=== PATIENT | female | born 1975 | race Caucasian/White ===

== ENCOUNTER 2019-06-11 01:06 | Outpatient (CLI) | payer BC, SELFPAY ==
--- NOTE | 2019-06-11 13:19 | DI.MAMMO_ITS ---
SYMPTOMS/DIAGNOSIS: SCREENING, Z12.31 BILATERAL SCREENING MAMMOGRAM: Mammograms were interpreted according to the usual protocol including computer analysis with CAD system, tomosynthesis and C view imaging. Comparison is made with 2014. The breasts are composed of extremely dense fibroglandular tissue, breast density category D. No suspicious masses or suspicious microcalcifications are seen. There has been no significant change. IMPRESSION: Category 1, negative mammogram. Yearly screening mammography is recommended. [facility] ASSESSMENT OF FINDINGS: Negative. Category 1. Patient will receive a letter notifying them of these results. BI-RADS category D. The breasts are extremely dense, which lowers the sensitivity of mammography.
== END 2019-06-11 01:26 ==
PROVIDERS: PCP Family Medicine; Visit Provider Family Medicine
DX: Z12.31 Encounter for screening mammogram for malignant neoplasm of breast (principal)
CPT/HCPCS: 77063; 77067

== ENCOUNTER 2022-11-29 11:54 | Outpatient (REF) | payer SELFPAY ==
[2022-11-29 13:04] LABS: TSH (W/Ref FT4) 4.03 uIU/mL (0.36-3.74)
[2022-11-29 13:25] LABS: FREE T4 0.76 ng/dL (0.76-1.46)
== END 2022-11-29 11:55 | disposition home or self-care (01) ==
LOC: LBN 11:54
PROVIDERS: PCP Family Medicine; Visit Provider Nurse Practitioner Family
DX: K59.00 Constipation, unspecified (principal); R63.5 Abnormal weight gain
CPT/HCPCS: 84439; 84443

== ENCOUNTER 2024-03-16 05:41 | Outpatient (CLI) | payer SELFPAY ==
[2024-03-16 12:03] LABS: Anion Gap 3.2 mmol/L (3-11); BUN 19 mg/dL (7-18); CO2 30.8 mmol/L (21.0-32.0); CREATININE 0.9 mg/dL (0.55-1.02); Calculated LDL 110 mg/dL (<100); Chloride 105 mmol/L (98-107); Cholesterol 193 mg/dL (<200); Estimated GFR 77.88 (mL/min/1.73m2); Glucose 87 mg/dL (74-106); HDL Cholesterol 70 mg/dL (40-60); Potassium 3.7 mmol/L (3.5-5.1); Sodium 139 mmol/L (136-145); TSH (W/Ref FT4) 3.29 uIU/mL (0.36-3.74); Triglyceride 67 mg/dL (<150)
[2024-03-18 13:39] LABS: Lab Add On Test DONE
[2024-03-18 13:54] LABS: Iron 54 ug/dL (50-170)
[2024-03-18 14:07] LABS: Ferritin 9 ng/mL (8-252)
== END 2024-03-16 05:42 | disposition home or self-care (01) ==
LOC: LBO 05:41
PROVIDERS: PCP Family Medicine; Visit Provider Family Medicine
DX: E78.5 Hyperlipidemia, unspecified (principal); E03.9 Hypothyroidism, unspecified; E87.1 Hypo-osmolality and hyponatremia
CPT/HCPCS: 36415; 80048; 80061; 82728; 83540; 84443

== ENCOUNTER 2024-03-17 05:24 | Outpatient (CLI) | payer SELFPAY ==
[2024-03-17 16:11] LABS: Abs Immature Grans 0.02 10^3/uL (0.0-0.06); Absolute Basophil Count 0.02 10^3/uL (0.0-0.2); Absolute Eosinophil Count 0.12 10^3/uL (0.0-0.7); Absolute Lymphocyte Count 1.33 10^3/uL (1.2-3.4); Absolute Monocyte Count 0.41 10^3/uL (0.1-0.8); Absolute Neutrophil Count 2.95 10^3/uL (1.2-6.7); Basophils % 0.4 %; Eosinophils % 2.5 %; HCT 35.3 % (36.0-46.0); HGB 11.2 g/dL (11.2-15.7); Immature Grans % 0.4 %; Lymphocytes % 27.4 %; MCH 27.5 pg (27.0-33.0); MCHC 31.7 % (32.0-36.0); MCV 87 fL (80-95); MPV 9.4 fL (8.0-11.0); Monocytes % 8.5 %; Neutrophils % 60.8 %; Platelet Count 271 10^3/uL (130-400); RBC 4.08 10^6/uL (3.93-5.22); RDW 13.1 % (11.7-14.6); RDW-SD 41.1 fL; WBC 4.85 10^3/uL (4.4-10.8)
== END 2024-03-17 05:25 | disposition home or self-care (01) ==
PROVIDERS: PCP Family Medicine; Visit Provider Family Medicine
DX: R58 Hemorrhage, not elsewhere classified (principal)
CPT/HCPCS: 36415; 85025

== ENCOUNTER 2024-03-23 12:10 | Emergency (ER) | payer SELFPAY ==
[2024-03-23 12:12] VITALS: BP 113/71; PULSE 60; RESP 18; TEMP 36.5; O2SAT 99
--- NOTE | 2024-03-23 12:30 | DI.CT_ITS ---
Exam(s) CT ABDOMEN PELVIS W EXAM: CT ABDOMEN PELVIS W CLINICAL HISTORY: abd pain RLQ pain bloody stool contipation TECHNIQUE: Imaging Protocol: Axial computed tomography images with coronal and sagittal reformatted images were created and reviewed. CONTRAST MATERIAL: Intravenous: Omnipaque 350 Contrast volume:100 mL Oral: No COMPARISON: CT ABD PELVIS WITH CONTRAST from 07/09/2013 FINDINGS: ABDOMEN: Lung Bases: Normal where visualized. Liver: Normal density. No measurable mass. Portal, Superior Mesenteric, and Splenic Veins: Unremarkable. Gallbladder and Biliary Tract: No radiodense calculus or dilation. Pancreas: Normal density, no abnormal calcifications or inflammatory process. Spleen: Normal. There is a small simple cyst or hemangioma in the spleen. Adrenals: No masses seen. Kidneys: Normal size, contour and axis. No radiodense stones or obstructive uropathy. No masses seen. Abdominal Aorta: Abdominal portion non-dilated. Bowel: No obstruction or bowel wall thickening. Appendix is unremarkable. The stomach is incompletely distended limiting evaluation. Peritoneal Cavity: No ascites, collection or mesenteric inflammatory response. No free air. Lymph Nodes: Within normal limits. Bones: Within normal limits for the patient's age. Soft Tissues: There is a small fat containing umbilical hernia. PELVIS: Bladder: Symmetric distention, no gross wall thickening. Reproductive Organs: There is an IUD which is in good position. Lymph Nodes: Within normal limits. Bones: Within normal limits for the patient's age. IMPRESSION: 1. No acute abdominal pelvic process. 2. Normal appendix. RADIATION DOSE DELIVERED: 836.81mGy.cm Total DLP DATA REPOSITORY: All CT scans at this facility are submitted to the National Radiology Data Registry (NRDR) Dose Index Registry (DIR) with the [employer] (ACR). RADIATION OPTIMIZATION: All CT scans at this facility use at least one of these dose optimization te chniques: automated exposure control; mA and/or kV adjustment per patient size (includes targeted exa ms where dose is matched to clinical indication); or iterative reconstruction.
[2024-03-23 12:41] LABS: Abs Immature Grans 0.01 10^3/uL (0.0-0.06); Absolute Basophil Count 0.03 10^3/uL (0.0-0.2); Absolute Eosinophil Count 0.11 10^3/uL (0.0-0.7); Absolute Lymphocyte Count 1.28 10^3/uL (1.2-3.4); Absolute Monocyte Count 0.46 10^3/uL (0.1-0.8); Absolute Neutrophil Count 3.26 10^3/uL (1.2-6.7); Basophils % 0.6 %; Eosinophils % 2.1 %; HCT 40.3 % (36.0-46.0); HGB 13.1 g/dL (11.2-15.7); Immature Grans % 0.2 %; Lymphocytes % 24.9 %; MCH 27.3 pg (27.0-33.0); MCHC 32.5 % (32.0-36.0); MCV 84 fL (80-95); MPV 9.9 fL (8.0-11.0); Monocytes % 8.9 %; Neutrophils % 63.3 %; Platelet Count 293 10^3/uL (130-400); RBC 4.79 10^6/uL (3.93-5.22); RDW 12.8 % (11.7-14.6); RDW-SD 39.1 fL; WBC 5.15 10^3/uL (4.4-10.8)
[2024-03-23 12:42] LABS: Bilirubin Negative (Negative); Blood Negative (Negative); Clarity Clear (Clear); Glucose Negative (Negative); Ketones Negative (Negative); Leukocyte Esterase Negative (Negative); Nitrite Negative (Negative); Urobilinogen 0.2 mg/dL (Up to 0.2); pH 5.5 (5-8)
[2024-03-23 12:58] LABS: ALT 23 U/L (14-59); AST 19 U/L (15-37); Albumin 4.1 g/dL (3.4-5.0); Alkaline Phosphatase 63 U/L (46-116); Anion Gap 8.9 mmol/L (3-11); BUN 18 mg/dL (7-18); Bilirubin, Total 0.5 mg/dL (0.2-1.0); CO2 28.1 mmol/L (21.0-32.0); CREATININE 0.9 mg/dL (0.55-1.02); Calcium 9.1 mg/dL (8.5-10.1); Chloride 103 mmol/L (98-107); Estimated GFR 77.88 (mL/min/1.73m2); Glucose 96 mg/dL (74-106); Potassium 3.8 mmol/L (3.5-5.1); Sodium 140 mmol/L (136-145); Total Protein 8.6 g/dL (6.4-8.2)
[2024-03-23 13:02] LABS: INR 1.1 (0.9-1.1); PTT Activated 27.6 sec (23.6-32.8); Prothrombin Time 11.4 sec (9.1-11.1)
[2024-03-23] MEDS: Ondansetron 4 MG/2 ML VIAL IVP (13:11)
[2024-03-23] MEDS: HYDROmorphone 2 MG/ML SYR 0.5 MG IVP (13:11)
[2024-03-23] MEDS: Normal Saline 1,000 ML 1000 ML IV (13:12)
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
[2024-03-23 13:52] VITALS: BP 127/80; PULSE 40
[2024-03-23] MEDS: Normal Saline - Diluent 50 ML VIAL IJ (14:22)
[2024-03-23] MEDS: Omnipaque 350 MG/ML 100 ML BTL IJ (14:24)
[2024-03-23 15:38] VITALS: BP 115/54; PULSE 48; RESP 16; TEMP 36.8; O2SAT 98
--- NOTE | 2024-03-25 15:33 | NUR.NOTE ---
Accessed Pt chart to see if there was an order for a stool sample. The patient brought a specimen to the Lab and stated the ER doctor ordered it for her. However I did not see an order from the ER and suggested they check with her primary care physician
== END 2024-03-23 15:43 | disposition home or self-care (01) ==
PROVIDERS: Emergency Provider Emergency Medicine; PCP Family Medicine
DX: R10.31 Right lower quadrant pain (principal); K92.1 Melena
CPT/HCPCS: 80053; 81025; 96361; 96374; 96375; 99285; 74177; 81003; 85025; 85610; 85730; 99283; J1170; J2405; J3490

== ENCOUNTER 2024-03-26 12:06 | Outpatient (REF) | payer SELFPAY ==
[2024-03-26 23:02] LABS: Campylobacter PCR Negative (Negative); Salmonella PCR Negative (Negative); Shiga Toxin PCR Negative (Negative); Shigella/Enteroinvasive Ecoli Negative (Negative)
== END 2024-03-26 12:07 | disposition home or self-care (01) ==
LOC: LBN 12:06
PROVIDERS: PCP Family Medicine; Visit Provider Family Medicine
DX: K92.1 Melena (principal); R63.4 Abnormal weight loss
CPT/HCPCS: 87329; 87505; 87177

== ENCOUNTER 2024-04-16 10:53 | Day surgery (SDC) | payer SELFPAY ==
--- NOTE | 2024-04-15 23:55 | W.COLOREPORT ---
Date of service: 04/16/24 Time of Service: 13:50 Colonoscopy Report Date of procedure: 04/16/24 Pre-op diagnosis general: Abdominal pain/rectal bleeding/constipation/weight loss/family history of C Post-op diagnosis procedure note: other (Diverticula/colon polyp/proctitis) Procedure: Diverticula/colon polyp/proctitis Surgeon: Rica Stephenson Anesthesia Type: General:No Airway Estimated blood loss (mL): 2 Pathology: other Complications: None Disposition: same day Prep: Miralax/Dulcolax Retraction Time: 17 Procedure Description: After informed consent was obtained the patient was taken to the procedure room and placed in a left decubitous position. Monitors were applied and a time out was done. The patients name, date of , procedure, allergies to medications and metal in their body was reviewed. The patient was then sedated. Once sedated and comfortable a rectal exam was done. External exam was normal. Internal exam revealed a normal sphincter tone and no palpable masses. The scope was then introduced and retrofelexed. No internal hemorrhoids were identified. The scope was then advanced to the cecum without difficulty. The TI and appendiceal orifice were identified. The scope was then slowly retracted over 17 minutes back into the rectum. There is few small scattered diverticula confined to the sigmoid colon. There is no signs of active bleeding or infection. She has a large pedunculated polyp at 80 cm. This is removed with a cold snare. A clip is placed over the defect. There is no bleeding noted after the clip is placed. The specimen is retrieved and no bleeding is noted. In the very last portion of the rectum she does have 2 to 3 cm of some moderate erythema, edema and irritation. It does appear to be proctitis. Multiple biopsies are taken.. The scope was removed and the patient was woken up and taken back to Same day surgery in stable condition. The patient tolerated the procedure well and there were no immediate complications. Follow up: The patient should follow up in 5 years unless they develop changes in bowel habits or other new gastrointestinal complaints. [place] Bowel Prep [place] Bowel Prep Right Colon: 3 Left Colon: 3 Transverse Colon: 3 Total Score: 9
--- NOTE | 2024-04-15 23:56 | PDOC.DSDIS_ITS ---
Date of service: 04/16/24 Time of Service: 16:01 Discharge Plan Disposition Patient Disposition: Home Condition: Good Discharge Details Reason For Visit: Scope of the colon Attending Provider: Rica Stephenson Primary Care Provider: Hernán Downing Home Meds and New Rx's Prescriptions: New hydrocortisone [Cortenema] 100 mg/60 mL enema 100 mg MS BID 10 Days Qty: 1200 12RF Continued fluoxetine 40 mg capsule 40 mg PO DAILY Qty: 90 3RF bupropion HCl 150 mg tablet extended release 24 hr 150 mg PO QAM Qty: 90 3RF trazodone 50 mg tablet 50 mg PO QHS PRN (Reason: sleep) Qty: 90 3RF ferrous sulfate [Feosol] 325 mg (65 mg iron) tablet 325 mg PO DAILY Mirena 1 EACH intrauterine device 1 ea Intrauterine DIRECTED Discontinued polyethylene glycol 3350 17 gram/dose powder 238 g PO ONCE Qty: 238 0RF Rx Instructions: take per colonoscopy instructions bisacodyl [Dulcolax (bisacodyl)] 5 mg tablet,delayed release (DR/EC) 5 mg PO ONCE Qty: 4 0RF Rx Instructions: take per colonoscopy instructions Discharge Instructions Additional Instructions: DSU Colonoscopy Post- Op Instructions Instructions for Everyone who is given Anesthesia: For your safety, please do the following for the next twenty-four (24) hours: *Do Not operate a motor vehicle (car, truck, motorcycle, etc.) *Do Not drink alcoholic beverages or use any recreational drugs for the first 24 hours or while taking pain medications. The medications in your body may have a reaction that can be dangerous. *Do Not make any important decisions or sign any important papers. Findings: Proctitis Follow up: Dr. Stephenson 04/22/24. You will need to call for an nappt. [phone] 1. No lifting over 20 pounds or strenuous activity for the first 24 hours after your procedure. After 24 hours there are no restrictions on your activity but you may feel fatigued for a few days. 2. After you arrive home you may have a light meal and return to your normal diet as you can tolerate it without feeling sick to your stomach. 3. You may have a bloated, gaseous feeling in your belly (abdomen) after a colonoscopy. Passing gas and belching will help. Walking or lying down on your left side with your knees flexed may relieve the discomfort. Call the office at [phone] (Office) or [phone] (Hospital) right away if you notice any of the following: a.Vomiting of blood or ?coffee ground stools?. b.Rectal bleeding 1Tbsp, blood clots or continuous bleeding. c.Severe belly (abdominal) pain. d.A hard distended belly (abdomen) and an inability to pass gas. 4. Please don?t expect to have a normal BM (bowel movement) for 2-3 days after your procedure. 5. If there are questions regarding the findings of your procedure, please contact your doctor 6. If you are unable to contact your doctor with a problem, contact the hospital at [phone]. 7. Continue all your regular medications unless directed otherwise. I understand the above instructions and have no questions. Signature of Patient or Adult Escort Name of Responsible Adult Escort Signature of Nurse Date/Time Stand Alone Forms: Anesthesia Discharge Inst., Michael Galo (U) Referrals: Rica Stephenson DO [OSTEOPATHIC DOCTOR] - 04/22/24 1:00 pm Activity:: See above Diet:: See above Discharge Orders Discharge Orders: Discharge Order (Routine); Ordered 04/16/24 Ordered By: Rica Stephenson DS: Diagnosis Discharge Diagnosis (1) Depressive disorder: (2) Persistent mood disorder: Status: Chronic (3) Adjustment disorder with depressed mood: (4) Weight gain: Status: Acute (5) Constipation: Status: Acute (6) Rectal bleeding: Status: Acute Asessment and Plan: The patient is seen and examined after their colonoscopy.? The patient has been able to pass gas.? They are not having abdominal pain.? They have been able to tolerate liquids and a snack.? They do not have any nausea or vomiting.? They are not having any chest pain or shortness of breath.??? They are not having any rectal bleeding. Their vital signs have been stable-see nursing notes. We discussed findings during their colonoscopy, and any biopsies that were done/polyps that were removed. The patient will be sent a letter with any biopsy results, and when to repeat the colonoscopy.-see discharge instructions. Patient was given explicit instructions to follow-up regarding colonoscopy-refer to discharge instructions.? We reviewed resumption of medications. Patient verbalized understanding and discharged in stable and satisfactory condition- See nursing notes. (7) Abdominal pain: Status: Acute (8) Anemia: (9) Smoker: Status: Acute (10) Family history of Crohn's disease: Status: Acute (11) Unexplained weight loss: Status: Acute (12) Proctitis: Status: Acute
[2024-04-16 11:00] VITALS: BP 108/71; PULSE 52; RESP 16; TEMP 36.4; O2SAT 97
[2024-04-16] MEDS: Lactated Ringers 1,000 ML 80 ML IV (11:22)
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
[2024-04-16 11:40] VITALS: BMI 21.4
--- NOTE | 2024-04-16 12:16 | BOWEL_PTH ---
PATIENT: Kim Jain LOC: [facility]G U#:[id number] AGE/SX: 48/F ROOM: RE04/16/[address]: Rica Stephenson : 1975 BED: DIS: 04/16/2024 SPEC #: [id number] RECD: 04/16/24 13:09 STATUS: JENNIFER RE #: [id number] BROWN: 04/16/24 12:[address]: Rica Stephenson DEPT: Surgical Specimen RECD BY: Sarah Dean ENTERED: 04/16/24 13:11 SP TYPE: Bowel OTHR DR: Hernán Downing MD Tissues: 1 - BIOPSY BOWEL 2 - BIOPSY BOWEL 3 - BIOPSY BOWEL 4 - BIOPSY BOWEL Procedures: GROSS AND MICRO LEVEL 4 Comments: [id number]
[2024-04-16 12:35] VITALS: BP 95/57; PULSE 48; RESP 16; TEMP 36.3; O2SAT 100
[2024-04-16 13:01] VITALS: BP 104/67; PULSE 46; RESP 14; TEMP 36.6; O2SAT 99
[2024-04-16] MEDS: Omnipaque 350 MG/ML 50 ML BTL PO (13:20)
[2024-04-16] MEDS: Breeza Beverage 473 ML BTL PO (13:21)
[2024-04-16 13:29] LABS: C-Reactive Protein < 0.50 mg/dL (<or=0.5)
--- NOTE | 2024-04-16 13:58 | W.ANESPOSTOP ---
Postoperative Evaluation Date, Time and Location Date Performed: 04/16/24 Time Performed: 13:58 Patient Location: Day Surgery Unit Vital Signs Most Recent Imported Vital Signs: Most Recent Vital Signs Temp Pulse Resp BP Pulse Ox 36.6 C 46 L 14 104/67 99 04/16/24 13:01 04/16/24 13:01 04/16/24 13:01 04/16/24 13:01 04/16/24 13:01 Pain Score Most Recent Pain Score: Most Recent Pain Score Pain Level 0 04/16/24 12:35 Assessment Mental Status: Awake (Alert & Oriented to Patient Baseline) Airway and Respiratory Function: Patent airway with normal (patient baseline) respiratory exam Cardiovascular Function: Hemodynamically Stable Hydration Status: Adequately Hydrated Nausea & Vomiting: No Nausea or Vomiting Pain: Pt. Denies Any Pain Peripheral Nerve Block: Patient did not receive a nerve block Postoperative Comments:: IV Infiltration on right wrist accessed. No swelling or discoloration noted. All skin areas well perfused. Pt denies and pain at site. Rafael Deleon, TEST AUTOMATION ARCHITECT
[2024-04-16 14:05] LABS: Ferritin 27 ng/mL (8-252); Vitamin B12 823 pg/mL (193-986)
[2024-04-16 14:40] VITALS: BP 119/75; PULSE 50; RESP 16; TEMP 36.8; O2SAT 100
[2024-04-16] MEDS: Omnipaque 350 MG/ML 100 ML BTL IJ (15:37)
[2024-04-16] MEDS: Normal Saline - Diluent 50 ML VIAL IJ (15:39)
--- NOTE | 2024-04-16 15:44 | DI.CT_ITS ---
Exam(s) CT ABDOMEN PELVIS W EXAM: CT ABDOMEN PELVIS W CLINICAL HISTORY: Inflammatory bowel disease/proctitis on colonosco. TECHNIQUE: Imaging Protocol: Axial computed tomography images with coronal and sagittal reformatted images were created and reviewed CONTRAST MATERIAL: Intravenous: Omnipaque 350 Contrast volume:100 ml Oral: yes / COMPARISON: CT CT ABDOMEN PELVIS W from 03/23/2024 FINDINGS: ABDOMEN and PELVIS: Lung Bases: No acute findings. Liver: Normal density. No suspicious mass. Gallbladder and biliary tract: No radiodense calculus. No biliary dilation. Pancreas: Normal density. No abnormal calcifications or inflammatory process. No evidence of mass. Spleen: Normal. Kidneys: Normal size, contour and axis. No radiodense stones. No obstructive uropathy. No suspicious masses seen. Adrenal glands: No masses seen. Vasculature: Abdominal aorta non-dilated. Soft tissues: Small fatty containing umbilical hernia. Bladder: No gross wall thickening. No calculi.No focal mass. Bowel: N fly frame tender oral contrast is seen in distal small bowel and colon. The distal rectum is collap sed. No definite area of wall thickening. No obstruction. No bowel wall thickening. Appendix norm al. Peritoneal cavity: No ascites. No focal collection. No mesenteric inflammatory response. Bones: Unremarkable for age. Reproductive organs: Unremarkable. IUD. Lymph nodes: No pathologically enlarged lymph nodes. IMPRESSION:: No acute abnormality in the abdomen or pelvis. No area of bowel wall thickening is identified. RADIATION DOSE DELIVERED: 835.83mGy.cm Total DLP DATA REPOSITORY: All CT scans at this facility are submitted to the National Radiology Data Registry (NRDR) Dose Index Registry (DIR) with the [employer] (ACR). RADIATION OPTIMIZATION: All CT scans at this facility use at least one of these dose optimization te chniques: automated exposure control; mA and/or kV adjustment per patient size (includes targeted exa ms where dose is matched to clinical indication); or iterative reconstruction.
[2024-04-19 14:37] LABS: ANCA Interpretation Negative (Negative)
[2024-04-19 15:15] LABS: ANA Interpretation Positive (Negative); ANA Titer Pattern 1:80 Homogeneous
== END 2024-04-16 16:23 | disposition home or self-care (01) ==
LOC: SUR 10:54
PROVIDERS: PCP Family Medicine; Visit Provider Surgery
PROC: 0DJD8ZZ Inspection of Lower Intestinal Tract, Via Natural or Artificial Opening Endoscopic (ICD-10-PCS; CPT 45378; principal; 2024-04-16 11:15)
DX: K59.00 Constipation, unspecified; K62.5 Hemorrhage of anus and rectum; Z12.11 Encounter for screening for malignant neoplasm of colon; D12.4 Benign neoplasm of descending colon; K57.30 Diverticulosis of large intestine without perforation or abscess without bleeding; K63.89 Other specified diseases of intestine; K62.89 Other specified diseases of anus and rectum
CPT/HCPCS: 45385; 45380; 36415; 81025; 86255; 88305; 74177; 82607; 82728; 82746; 86038; 86140; J2001; J2704; J3490; Q9967

== ENCOUNTER 2024-05-07 01:53 | Outpatient (CLI) | payer SELFPAY ==
--- NOTE | 2024-05-10 09:48 | TELEFU_ITS ---
Date of service: 05/07/24 Time of Service: 12:00 Nutrition Note NOTE: Kim comes in for referred nutrition visit regarding unintentional weight fluctuations due to GI disturbances. Assessment: Pt is 48yo female who is pleasant, looks much younger than her age. Weight documentation in chart shows ~6.5kg (14.3lb) wt loss from February 2023 to February 2024, and an additional loss of 5.81kg (12.8lbs) from 02/25/24-04/16/24. All-in - all she has experienced a 12.3 kg net loss over the last 14 months, which is a 17% loss of body weight. Her usual/desired body weight is 130-135lbs (~60kg). She was anemic with low Hct which was corrected on labs 03/23/24. Her total protein lab was high - she does relate a poor intake of free water which could explain. She reports it's been 2 weeks since her last colonoscopy which showed some proctitis. Reports IBS-C symptoms. She follows gluten free, dairy free, no caffeine, no added sugar diet and finds it easy to relay diet history today as she states she has been able to eat from a small list of foods for the past 6 months at least. Breakfast is 2 scrambled eggs with piece of sourdough bread lunch is either dairy free yogurt with blueberries and bananas or a smoothie made with vegan protein powder, peanut butter and banana. Dinner is mashed sweet potato, veggie and ground turkey/beef or chicken. She also reports eating baby food jar options when she feels like she cannot tolerate much else. She does not take any nutritional supplements. Estimated energy needs: 1568kcals and 78g protein (REEx1.3 and 20%kcals from protein) estimated intake from diet history provided by pt: 50g protein and 900 kcals. meets 71% of protein recommendation and 57% of kcal recommendation. Diagnosis: Inadequate energy intake (NI-1.4) related to narrow range of food choices and small portions due to GI symptoms, as evidenced by unintentional weight loss and patient reported diet history. Inadequate fluid intake (NI-3.1) related to pt poor oral intake of water and other fluids, as evidenced by pt history indicating <1.5L fluid intake most days Inadequate protein intake (NI-52.1) related to limited variety and portions of protein choices and eating 3 times daily as evidenced by patient interview/reported diet history Intervention: -Kim will consider the following supplements: Multi vitamin/mineral in capsule or powder form for easy digestion, extra vitamin D3:2,000IU, probiotic (suggested OTC Culturelle), and OTC broad spectrum digestive enzymes. -Kim will increase her fluid intake from non-caffeine and non-sugar beverages to goal of at least 2L per day -Kim will work at increasing fiber intake slowly by incorporating more veggies in her diet (reviewed she can peel/cook first if better tolerated and work from there). -Kim will continue to stay active and try to move/get exercise daily -may consider PEG dosing/laxatives/fiber supplements as necessary -Kim will consider adding 1-2 snacks to help increase kcals and protein intake -Try to manage stress, chew food thoroughly and try to move bowels same time each day., Monitoring: Plan to call Kim x2 weeks to get update and offer any support with menu planning/ medical nutrition therapy Time Spent in Nutritional Counseling and Treatment: 30 minutes
== END 2024-05-07 01:54 | disposition home or self-care (01) ==
LOC: DS 01:53
PROVIDERS: PCP Family Medicine; Visit Provider Dietitian, Registered
DX: R63.4 Abnormal weight loss (principal); K58.1 Irritable bowel syndrome with constipation; E63.8 Other specified nutritional deficiencies; Z71.3 Dietary counseling and surveillance
CPT/HCPCS: 00123; 97802

== ENCOUNTER 2024-05-14 01:08 | Outpatient (RCR) | payer SELFPAY ==
[2024-04-30] MEDS: IRON SUCROSE COMPLEX 200 MG in Normal Saline 100 ML 440 MG IVPB (13:24)
[2024-04-30] MEDS: Normal Saline Flush 10 ML SYR IVP (13:44)
[2024-05-07] MEDS: Normal Saline Flush 10 ML SYR IVP (13:06)
[2024-05-07] MEDS: IRON SUCROSE COMPLEX 200 MG in Normal Saline 100 ML 440 MG IVPB (13:14)
[2024-05-14] MEDS: IRON SUCROSE COMPLEX 200 MG in Normal Saline 100 ML 440 MG IVPB (13:22)
[2024-05-14] MEDS: Normal Saline Flush 10 ML SYR IVP (13:23)
== END 2024-05-16 23:59 | disposition home or self-care (01) ==
LOC: INF 01:08
PROVIDERS: PCP Family Medicine; Visit Provider Surgery
DX: K51.20 Ulcerative (chronic) proctitis without complications (principal); D50.9 Iron deficiency anemia, unspecified
CPT/HCPCS: 96365; J1756

== ENCOUNTER 2024-06-03 02:26 | Outpatient (CLI) | payer SELFPAY ==
[2024-06-03 13:25] LABS: Abs Immature Grans 0.03 10^3/uL (0.0-0.06); Absolute Basophil Count 0.04 10^3/uL (0.0-0.2); Absolute Eosinophil Count 0.06 10^3/uL (0.0-0.7); Absolute Lymphocyte Count 1.35 10^3/uL (1.2-3.4); Absolute Monocyte Count 0.51 10^3/uL (0.1-0.8); Absolute Neutrophil Count 3.96 10^3/uL (1.2-6.7); Basophils % 0.7 %; HCT 40.5 % (36.0-46.0); HGB 13.6 g/dL (11.2-15.7); Immature Grans % 0.5 %; Lymphocytes % 22.7 %; MCHC 33.6 % (32.0-36.0); MCV 86 fL (80-95); MPV 9.3 fL (8.0-11.0); Monocytes % 8.6 %; Neutrophils % 66.5 %; Platelet Count 243 10^3/uL (130-400); RBC 4.69 10^6/uL (3.93-5.22); RDW 13.2 % (11.7-14.6); RDW-SD 41.3 fL; WBC 5.95 10^3/uL (4.4-10.8)
[2024-06-03 14:04] LABS: Ferritin 174 ng/mL (8-252)
== END 2024-06-03 02:27 | disposition home or self-care (01) ==
PROVIDERS: PCP Family Medicine; Visit Provider Surgery
DX: R63.4 Abnormal weight loss (principal); K62.5 Hemorrhage of anus and rectum; Z83.79 Family history of other diseases of the digestive system; K62.89 Other specified diseases of anus and rectum; Z30.431 Encounter for routine checking of intrauterine contraceptive device; E61.1 Iron deficiency
CPT/HCPCS: 36415; 82728; 85025

== ENCOUNTER 2024-11-03 15:58 | Outpatient (REF) | payer BC, SELFPAY ==
--- NOTE | 2024-11-03 15:40 | PAPFT_PTH ---
PATIENT: Kim Jain LOC: [facility] U#:[id number] AGE/SX: 49/F ROOM: RE11/03/[address]: Livier Stone NP : 1975 BED: DIS: 11/03/2024 SPEC #: [id number] RECD: 11/03/24 17:15 STATUS: JENNIFER REFara #: [id number] BROWN: 11/03/24 15:[address]: Livier Stone NP DEPT: [facility] Cytology RECD BY: Sarah Dean ENTERED: 11/03/24 17:15 SP TYPE: PAPFT OTHR DR: Hernán Downing MD Tissues: 1 - CX/ENDOCX FOR PAP SMEARS Procedures: PAP THIN PREP/UVM Screening HPV DNA PROBE Comments: [id number] (HPV 16 & 18/45)
== END 2024-11-03 15:59 | disposition home or self-care (01) ==
LOC: LBN 15:58
PROVIDERS: PCP Family Medicine; Visit Provider Nurse Practitioner Women's Health
DX: R87.619 Unspecified abnormal cytological findings in specimens from cervix uteri (principal); N77.1 Vaginitis, vulvitis and vulvovaginitis in diseases classified elsewhere; N91.2 Amenorrhea, unspecified; Z12.39 Encounter for other screening for malignant neoplasm of breast; Z01.419 Encounter for gynecological examination (general) (routine) without abnormal findings; Z30.431 Encounter for routine checking of intrauterine contraceptive device; Z12.4 Encounter for screening for malignant neoplasm of cervix
CPT/HCPCS: 88142; 87624

== ENCOUNTER 2024-11-03 16:31 | Outpatient (CLI) | payer BC, SELFPAY ==
[2024-11-04 19:22] LABS: FSH 97.2 mIU/mL (See Note)
== END 2024-11-03 16:32 | disposition home or self-care (01) ==
LOC: LBO 16:33
PROVIDERS: PCP Family Medicine; Visit Provider Nurse Practitioner Women's Health
DX: N91.2 Amenorrhea, unspecified (principal)
CPT/HCPCS: 36415; 83001

== ENCOUNTER 2024-11-19 14:25 | Outpatient (CLI) | payer BC, SELFPAY ==
[2024-11-19 15:24] LABS: Abs Immature Grans 0.02 10^3/uL (0.0-0.06); Absolute Basophil Count 0.03 10^3/uL (0.0-0.2); Absolute Lymphocyte Count 1.56 10^3/uL (1.2-3.4); Absolute Monocyte Count 0.48 10^3/uL (0.1-0.8); Absolute Neutrophil Count 2.53 10^3/uL (1.2-6.7); Basophils % 0.6 %; Eosinophils % 2.1 %; HCT 40.5 % (36.0-46.0); HGB 13.5 g/dL (11.2-15.7); Immature Grans % 0.4 %; Lymphocytes % 33.1 %; MCH 29.3 pg (27.0-33.0); MCHC 33.3 % (32.0-36.0); MCV 88 fL (80-95); MPV 9.4 fL (8.0-11.0); Monocytes % 10.2 %; Neutrophils % 53.6 %; Platelet Count 228 10^3/uL (130-400); RDW 11.4 % (11.7-14.6); RDW-SD 36.1 fL; WBC 4.72 10^3/uL (4.4-10.8)
[2024-11-19 15:40] LABS: C-Reactive Protein < 0.50 mg/dL (<or=0.5)
[2024-11-19 16:11] LABS: Ferritin 115 ng/mL (8-252)
== END 2024-11-19 14:26 | disposition home or self-care (01) ==
LOC: LBO 14:26
PROVIDERS: PCP Family Medicine; Visit Provider Surgery
DX: K51.90 Ulcerative colitis, unspecified, without complications (principal); K57.30 Diverticulosis of large intestine without perforation or abscess without bleeding; E61.1 Iron deficiency
CPT/HCPCS: 36415; 82728; 85025; 86140

== ENCOUNTER 2024-11-26 00:12 | Outpatient (CLI) | payer BC, SELFPAY ==
--- NOTE | 2024-11-26 15:45 | DI.MAMMO_ITS ---
Exam(s) MAMMO SCREENING EXAM: MAMMO SCREENING CLINICAL HISTORY: screening TECHNIQUE: Bilateral full field digital CC and MLO mammographic images were obtained with 3D tomosyn thesis and utilizing computer aided detection (CAD). COMPARISON: Available for comparison. FINDINGS: Masses/Architectural Distortion: None seen. Microcalcifications: No suspicious pleomorphic-type are seen. Skin Thickening/Nipple Retraction: None. IMPRESSION: 1. No significant interval change with no specific features of malignancy noted. 2. Unless there is more urgent need, screening mammography is recommended, as per [employer] guidelines. BI-RADS Category 1 - Negative Breast Density - Category D - Extremely dense Breast density category C or D implies that the patient has dense breast tissue. Dense breast tissue is very common and is not abnormal but dense breast tissue can make it harder to find cancer on a ma mmogram. Also, dense breast tissue may increase their breast cancer risk. This information about the result of the mammogram report was provided to the patient to raise their awareness. Use this report when you speak with the patient about their risks for breast cancer, which includes their family hist ory. At that time, you may recommend for more screening tests (Ultrasound or MRI) as they might be us eful based on their risk. A negative radiographic report should not delay biopsy if a dominant or clinically suspicious mass is present. Up to ten percent of cancers are not identified on mammography. A negative report may reinforce clinical impression. Adenosis and dense breasts may obscure an underlying neoplasm. False positive reports average 6 to 10%. Patient will receive a letter notifying them of these results.
== END 2024-11-26 00:32 ==
LOC: DI 00:12
PROVIDERS: PCP Family Medicine; Visit Provider Nurse Practitioner Women's Health
DX: Z12.31 Encounter for screening mammogram for malignant neoplasm of breast (principal); R92.313 Mammographic fatty tissue density, bilateral breasts
CPT/HCPCS: 77063; 77067

== ENCOUNTER 2025-02-17 03:30 | Outpatient (CLI) | payer BC, SELFPAY ==
[2025-02-17 16:13] LABS: Abs Immature Grans 0.02 10^3/uL (0.0-0.06); Absolute Basophil Count 0.03 10^3/uL (0.0-0.2); Absolute Eosinophil Count 0.15 10^3/uL (0.0-0.7); Absolute Lymphocyte Count 1.78 10^3/uL (1.2-3.4); Absolute Monocyte Count 0.51 10^3/uL (0.1-0.8); Absolute Neutrophil Count 3.64 10^3/uL (1.2-6.7); Basophils % 0.5 %; Eosinophils % 2.4 %; HCT 39.7 % (36.0-46.0); HGB 13.1 g/dL (11.2-15.7); Immature Grans % 0.3 %; MCH 29.6 pg (27.0-33.0); MCV 90 fL (80-95); MPV 9.2 fL (8.0-11.0); Monocytes % 8.3 %; Neutrophils % 59.5 %; Platelet Count 249 10^3/uL (130-400); RBC 4.42 10^6/uL (3.93-5.22); RDW 11.9 % (11.7-14.6); RDW-SD 39.4 fL; WBC 6.13 10^3/uL (4.4-10.8)
[2025-02-17 17:14] LABS: Ferritin 99 ng/mL (8-252)
[2025-02-17 17:40] LABS: C-Reactive Protein < 0.50 mg/dL (<or=0.5)
== END 2025-02-17 03:31 | disposition home or self-care (01) ==
LOC: LBO 03:31
PROVIDERS: PCP Family Medicine; Visit Provider Surgery
DX: K62.89 Other specified diseases of anus and rectum (principal); K62.5 Hemorrhage of anus and rectum; E61.1 Iron deficiency; D64.9 Anemia, unspecified; R63.4 Abnormal weight loss
CPT/HCPCS: 36415; 82728; 83993; 85025; 86140

== ENCOUNTER 2025-02-18 16:05 | Outpatient (REF) | payer BC, SELFPAY ==
[2025-02-23 18:13] LABS: Calprotectin <50.0 mcg/g
== END 2025-02-18 16:06 | disposition home or self-care (01) ==
LOC: LBN 16:05
PROVIDERS: PCP Family Medicine; Visit Provider Surgery
DX: K62.89 Other specified diseases of anus and rectum (principal)
CPT/HCPCS: 83993